=== PATIENT | female | born 1965 | race Caucasian/White ===

== ENCOUNTER → 2017-10-26 | Outpatient (CLI) | payer OTHER ==
[~2017-10-26] MED LIST: BENTYL 10 MG CA10 M1 PO; COLACE100 MG PO; PAXIL10 MG PO; ZOFRAN ODT4 MG PO
== END ==
LOC: M.RAD 14:13
DX: Z12.31 Encounter for screening mammogram for malignant neoplasm of breast (principal)

== ENCOUNTER → 2018-11-11 | Outpatient (CLI) | payer OTHER | LOC: M.RAD 10-28 14:50 | DX: Z12.31 Encounter for screening mammogram for malignant neoplasm of breast (principal) ==

== ENCOUNTER → 2019-11-15 | Outpatient (CLI) | payer OTHER | LOC: M.RAD 11-11 14:30 | DX: Z12.31 Encounter for screening mammogram for malignant neoplasm of breast (principal) ==

== ENCOUNTER → 2020-12-11 | Outpatient (CLI) | payer OTHER | LOC: M.RAD 11-19 13:00 | PROVIDERS: ATTEND Family Medicine | DX: Z12.31 Encounter for screening mammogram for malignant neoplasm of breast (principal) ==

== ENCOUNTER → 2021-04-17 | Outpatient (CLI) | payer OTHER | LOC: M.ULTRA 04-16 15:30 | PROVIDERS: ATTEND Specialist | DX: R11.2 Nausea with vomiting, unspecified (principal); R19.00 Intra-abdominal and pelvic swelling, mass and lump, unspecified site; R93.89 Abnormal findings on diagnostic imaging of other specified body structures; R35.0 Frequency of micturition ==